=== PATIENT | male | born 1965 | race Caucasian/White ===

== ENCOUNTER 2021-08-19 15:17 | Emergency (ER) | payer OTHER, BC, MEDICARE ==
[~2021-08-19] VITALS: Ht 170.2 cm; Wt 113.1 kg
[2021-08-19 15:17] VITALS: BP 155/98
[2021-08-19] MEDS ORDERED: PREG225C (15:40)
[2021-08-19] MEDS ORDERED: TIZA2TA (15:40)
== END 2021-08-19 20:18 | disposition home or self-care (01) ==
LOC: M ED 15:17
DX: S20.212A Contusion of left front wall of thorax, initial encounter (principal); S50.02XA Contusion of left elbow, initial encounter; S16.1XXA Strain of muscle, fascia and tendon at neck level, initial encounter; S30.0XXA Contusion of lower back and pelvis, initial encounter; S46.912A Strain of unspecified muscle, fascia and tendon at shoulder and upper arm level, left arm, initial encounter; M25.78 Osteophyte, vertebrae; W00.0XXA Fall on same level due to ice and snow, initial encounter; Y92.481 Parking lot as the place of occurrence of the external cause; Y93.9 Activity, unspecified; Y99.9 Unspecified external cause status; M19.012 Primary osteoarthritis, left shoulder; M65.222 Calcific tendinitis, left upper arm; M51.37 Other intervertebral disc degeneration, lumbosacral region